=== PATIENT | male | born 1940 | race Caucasian/White ===

== ENCOUNTER 2025-03-09 10:22 | Inpatient (IN) | payer MEDICARE, OTHER ==
[~2025-03-09] VITALS: Ht 190.5 cm; Wt 86.2 kg
[2025-03-09] MEDS: PIPERACILLIN /TAZOBACTAM 3.375 G in IV D5W 50 ML IV ONE (10:50)
[2025-03-09 10:52] LABS: PLATELET COUNT (AUTO) 213 K/uL (150-450); RED BLOOD CELL COUNT(AUTO) 5.39 MIL/uL (4.5-6.0); RED CELL DISTRIBUTION WIDTH 18.9 % (11.5-15.0); WHITE BLOOD COUNT (AUTO) 21.5 K/uL (4.3-11.0)
[2025-03-09 10:55] LABS: CALCIUM, SERUM 9.9 mg/dL (8.5-10.1); CREATININE 1.6 mg/dL (0.6-1.3); SODIUM SERUM 147 mmol/L (136-145); UREA NITROGEN, BLOOD 41 mg/dL (7-18)
[2025-03-09] MEDS: IV NS 0.9% 1,000 ML BAG IV ONE (10:57)
[2025-03-09 10:59] LABS: INR 1.14 (0.91-1.10)
[2025-03-09] MEDS ORDERED: ACETAMINOPHEN ES 500 MG TABLET PO ONE (11:00)
[2025-03-09 11:03] LABS: LACTIC ACID 1.6 mmol/L (0.4-2.0)
[2025-03-09 11:04] LABS: ASPARTATE AMINOTRANSFERASE 12 U/L (15-37); TOTAL PROTEIN, SERUM 7.4 g/dL (6.4-8.2)
[2025-03-09] MEDS ORDERED: ACETAMINOPHEN ES 500 MG TABLET ONE (11:11)
[2025-03-09] MEDS ORDERED: ACETAMINOPHEN 650 MG/SUPP.RECT RC ONE (11:20)
[2025-03-09] MEDS: ACETAMINOPHEN 650 MG/SUPP.RECT RC ONE (11:20)
[2025-03-09] MEDS: VANCOMYCIN 1 GM in IV D5W 250 ML IV ONE (11:40)
[2025-03-09 13:30] VITALS: BP 152/76; TEMP 97.7
[2025-03-09] MEDS ORDERED: DOSING PER PHARMACY-CEFEPIME IVPB XX PRN (15:00)
[2025-03-09] MEDS ORDERED: ACETAMINOPHEN 325 MG TABLET PO PRN (15:00)
[2025-03-09] MEDS ORDERED: Z GUARD REMEDY 4 OZ OINT TP PRN (15:00)
[2025-03-09] MEDS ORDERED: DEXTROSE 50%-WATER 50 ML DISP.SYRIN IV PRN (15:00)
[2025-03-09] MEDS ORDERED: ALBUTEROL FS 2.5 MG/0.5 ML VIAL.NEB NEB PRN (15:00)
[2025-03-09] MEDS ORDERED: ONDANSETRON HCL/PF 4 MG/2 ML VIAL IVP PRN (15:00)
[2025-03-09] MEDS ORDERED: DOSING PER PHARMACY-VANCOMYCIN IV XX PRN (15:00)
[2025-03-09] MEDS ORDERED: IPRATROPIUM NEB FS 0.5 MG/2.5 ML AMPUL.NEB NEB PRN (15:00)
[2025-03-09] MEDS: IV D5/0.45 NACL 1,000 ML IV PRN (15:13)
[2025-03-09] MEDS: HYDROCORTISONE SOD SUCCINATE 100 MG/2 ML VIAL IV SCH (15:16)
[2025-03-09] MEDS: ENOXAPARIN SODIUM 40 MG/0.4 ML DISP.SYRIN SQ SCH (15:37)
[2025-03-09] MEDS: VANCOMYCIN 500 MG in IV D5W 100ml IV ONE (16:44)
[2025-03-09] MEDS: BLOOD SUGAR DIAGNOSTIC 1 EACH STRIP IN SCH (18:18)
[2025-03-09] MEDS: CEFEPIME 2 GM in IV D5W 100 ML IV SCH (18:18)
[2025-03-09] MEDS: INSULIN REGULAR, HUMAN 100 UNIT/ML 3 ML VIAL SQ PRN (18:19)
[2025-03-09 19:12] LABS: AMPHETAMINE, URINE NEGATIVE (NEGATIVE); BARBITURATE, URINE NEGATIVE (NEGATIVE); BENZODIAZEPINE, URINE NEGATIVE (NEGATIVE); CANNABINOID, URINE NEGATIVE (NEGATIVE); COCCAINE, URINE NEGATIVE (NEGATIVE); OPIATE, URINE NEGATIVE (NEGATIVE)
[2025-03-09 19:13] LABS: APPEARANCE,URINE CLOUDY (CLEAR); BLOOD, URINE 2+ Ery/uL (NEGATIVE); LEUKOCYTE ESTERASE ,URINE 2+ (NEGATIVE); NITRITE, URINE NEGATIVE (NEGATIVE); UGLUCOSE 1+ mg/dL (NEGATIVE)
[2025-03-09 19:25] LABS: ADD URINE CULTURE YES; SQUAMOUS EPITHELIAL CELL,UR Moderate /HPF (None Seen)
[2025-03-09 20:00] VITALS: BP 137/80; TEMP 97.7; O2SAT 97
[2025-03-10] VITALS: BP 144/83; TEMP 97.7; O2SAT 97
[2025-03-10 04:00] VITALS: BP 134/80; TEMP 97.7; O2SAT 97
[2025-03-10 07:52] LABS: PLATELET COUNT (AUTO) 182 K/uL (150-450); RED BLOOD CELL COUNT(AUTO) 4.76 MIL/uL (4.5-6.0); RED CELL DISTRIBUTION WIDTH 19.3 % (11.5-15.0); WHITE BLOOD COUNT (AUTO) 14.7 K/uL (4.3-11.0)
[2025-03-10 08:00] VITALS: BP 126/101; TEMP 98.2; O2SAT 97
[2025-03-10 08:45] LABS: CALCIUM, SERUM 9.5 mg/dL (8.5-10.1); CREATININE 1.5 mg/dL (0.6-1.3); NT-PRO BNP 921.0 pg/mL (0-125); PHOSPHORUS 3.6 mg/dL (2.5-4.9); SODIUM SERUM 147.0 mmol/L (136-145); UREA NITROGEN, BLOOD 44.0 mg/dL (7-18)
[2025-03-10] MEDS: PANTOPRAZOLE 40 MG VIAL IV SCH (09:20)
[2025-03-10] MEDS: FUROSEMIDE 20 MG/2 ML VIAL IV SCH (09:20)
[2025-03-10 09:51] LABS: LDL 48.0 mg/dL (0-99)
[2025-03-10] MEDS: DIGOXIN INJ 0.5 MG/2 ML AMPUL IV SCH (11:20)
[2025-03-10 12:00] VITALS: BP 150/86; TEMP 97.6; O2SAT 96
[2025-03-10] MEDS: VANCOMYCIN 1 GM in IV D5W 250ml IV SCH (15:25)
[2025-03-10 16:00] VITALS: BP 149/89; TEMP 97.9; O2SAT 96
[2025-03-10 16:32] LABS: HIV-1/2 ANTIBODY NON REACTIVE (NONREACTIVE)
[2025-03-10 20:00] VITALS: BP 132/87; TEMP 98.3; O2SAT 95
[2025-03-11] VITALS: BP 155/90; TEMP 97.5; O2SAT 95
[2025-03-11 04:00] VITALS: BP 156/86; TEMP 97.9; O2SAT 94
[2025-03-11 08:00] VITALS: BP 140/96; TEMP 98.6; O2SAT 94
[2025-03-11] MEDS: FUROSEMIDE 40 MG/4 ML VIAL IV SCH (09:43)
[2025-03-11] MEDS ORDERED: BARIUM SULFATE 98% 135 ML SUSP.RECON PO ONE (10:30)
[2025-03-11 12:00] VITALS: BP 137/100; TEMP 98.6; O2SAT 94
[2025-03-11] MEDS: IV D5/ 0.9% NACL 1,000 ML IV PRN (12:51)
[2025-03-11 15:44] LABS: PLATELET COUNT (AUTO) 170 K/uL (150-450); RED BLOOD CELL COUNT(AUTO) 4.68 MIL/uL (4.5-6.0); RED CELL DISTRIBUTION WIDTH 19.6 % (11.5-15.0); WHITE BLOOD COUNT (AUTO) 11.9 K/uL (4.3-11.0)
[2025-03-11 16:00] VITALS: BP 140/97; TEMP 98.1; O2SAT 94
[2025-03-11 16:00] LABS: CREATINE KINASE, TOTAL 19.0 U/L (39-308)
[2025-03-11 17:09] LABS: ASPARTATE AMINOTRANSFERASE 9.0 U/L (15-37); CALCIUM, SERUM 9.9 mg/dL (8.5-10.1); CREATININE 1.7 mg/dL (0.6-1.3); PHOSPHORUS 3.1 mg/dL (2.5-4.9); SODIUM SERUM 148.0 mmol/L (136-145); TOTAL PROTEIN, SERUM 6.9 g/dL (6.4-8.2); UREA NITROGEN, BLOOD 56.0 mg/dL (7-18)
[2025-03-11 20:00] VITALS: BP 130/90; TEMP 97.9; O2SAT 94
[2025-03-12] VITALS: BP 154/92; TEMP 97.9; O2SAT 94
[2025-03-12 04:00] VITALS: BP 141/92; TEMP 98.1; O2SAT 94
[2025-03-12 06:21] LABS: PLATELET COUNT (AUTO) 167 K/uL (150-450); RED BLOOD CELL COUNT(AUTO) 5.32 MIL/uL (4.5-6.0); RED CELL DISTRIBUTION WIDTH 19.3 % (11.5-15.0); WHITE BLOOD COUNT (AUTO) 10.5 K/uL (4.3-11.0)
[2025-03-12 06:49] LABS: ASPARTATE AMINOTRANSFERASE 6 U/L (15-37); CALCIUM, SERUM 9.6 mg/dL (8.5-10.1); CREATININE 1.7 mg/dL (0.6-1.3); PHOSPHORUS 3.0 mg/dL (2.5-4.9); SODIUM SERUM 150 mmol/L (136-145); TOTAL PROTEIN, SERUM 6.8 g/dL (6.4-8.2); UREA NITROGEN, BLOOD 61 mg/dL (7-18)
[2025-03-12 08:00] VITALS: BP 137/93; TEMP 97.5; O2SAT 94
[2025-03-12] MEDS: OLANZAPINE 10 MG VIAL IM ONE (09:30)
[2025-03-12] MEDS: POTASSIUM CL. PREMIX PERIPHER. 50 ML IV SCH (11:19)
[2025-03-12] MEDS ORDERED: DAPA10TA PO (11:56)
[2025-03-12] MEDS ORDERED: ACET-2030 PO (11:56)
[2025-03-12] MEDS ORDERED: ALLO300T2 PO (11:56)
[2025-03-12] MEDS ORDERED: LEVO50TA8 PO (11:56)
[2025-03-12] MEDS ORDERED: APIX5TAB PO (11:56)
[2025-03-12] MEDS ORDERED: METO25TA4 PO (11:56)
[2025-03-12] MEDS ORDERED: MAGN200T5 PO (11:56)
[2025-03-12] MEDS ORDERED: GLUC1KIT IM (11:56)
[2025-03-12] MEDS ORDERED: FOLI0.4T6 PO (11:56)
[2025-03-12] MEDS ORDERED: ACET-868 PO (11:56)
[2025-03-12] MEDS ORDERED: MULT-213 PO (11:56)
[2025-03-12] MEDS ORDERED: LACT10SO58 PO (11:56)
[2025-03-12] MEDS ORDERED: MELA3TAB41 PO (11:56)
[2025-03-12] MEDS ORDERED: BISA10SU11 RC (11:56)
[2025-03-12] MEDS ORDERED: TAMS-12 PO (11:56)
[2025-03-12] MEDS ORDERED: SODI650T PO (11:56)
[2025-03-12] MEDS ORDERED: NA P133E RC (11:56)
[2025-03-12] MEDS ORDERED: CLOP75TA15 PO (11:56)
[2025-03-12] MEDS ORDERED: FINA5TAB4 PO (11:56)
[2025-03-12] MEDS ORDERED: MAGN400O6 PO (11:56)
[2025-03-12] MEDS ORDERED: LOPE2TAB25 PO (11:56)
[2025-03-12] MEDS ORDERED: OMEP40CA21 PO (11:56)
[2025-03-12] MEDS ORDERED: CRAN400C PO (11:56)
[2025-03-12] MEDS ORDERED: ASCO-352 PO (11:56)
[2025-03-12] MEDS ORDERED: ASPI-1169 PO (11:56)
[2025-03-12] MEDS ORDERED: DOCU100T2 PO (11:56)
[2025-03-12 12:00] VITALS: BP 143/86; TEMP 98; O2SAT 97
[2025-03-12] MEDS: DIGOXIN INJ 0.5 MG/2 ML AMPUL IV SCH (13:51)
[2025-03-12 16:00] VITALS: BP 127/82; TEMP 97.5; O2SAT 95
[2025-03-12] MEDS: IV D5/0.45 NACL 1,000 ML IV PRN (18:25)
[2025-03-12 20:00] VITALS: BP 152/89; TEMP 97.7; O2SAT 93
[2025-03-13] VITALS: BP 159/91; TEMP 97.7; O2SAT 98
[2025-03-13 00:11] LABS: PTH, INTACT 34 pg/mL (15-65)
[2025-03-13 04:00] VITALS: BP 134/76; TEMP 98.1; O2SAT 95
[2025-03-13 08:00] VITALS: BP 131/72; TEMP 98.1; O2SAT 96
[2025-03-13 10:43] LABS: PLATELET COUNT (AUTO) 162 K/uL (150-450); RED BLOOD CELL COUNT(AUTO) 4.95 MIL/uL (4.5-6.0); RED CELL DISTRIBUTION WIDTH 19.1 % (11.5-15.0); WHITE BLOOD COUNT (AUTO) 9.0 K/uL (4.3-11.0)
[2025-03-13 10:53] LABS: CALCIUM, SERUM 9.6 mg/dL (8.5-10.1); CREATININE 1.4 mg/dL (0.6-1.3); SODIUM SERUM 152.0 mmol/L (136-145); UREA NITROGEN, BLOOD 63.0 mg/dL (7-18)
[2025-03-13 12:00] VITALS: BP 134/74; TEMP 97.9; O2SAT 97
[2025-03-13] MEDS: HYDROCORTISONE SOD SUCCINATE 100 MG/2 ML VIAL IV SCH (12:57)
[2025-03-13] MEDS: IV D5W 1,000 ML IV SCH (14:47)
[2025-03-13 16:00] VITALS: BP 130/77; TEMP 97.2; O2SAT 95
[2025-03-13 20:00] VITALS: BP 140/75; TEMP 97.5; O2SAT 99
[2025-03-14] VITALS: BP 135/80; TEMP 97.9; O2SAT 99
[2025-03-14 04:00] VITALS: BP 148/75; TEMP 98; O2SAT 99
[2025-03-14 07:33] LABS: PLATELET COUNT (AUTO) 141 K/uL (150-450); RED BLOOD CELL COUNT(AUTO) 4.71 MIL/uL (4.5-6.0); RED CELL DISTRIBUTION WIDTH 18.7 % (11.5-15.0); WHITE BLOOD COUNT (AUTO) 9.1 K/uL (4.3-11.0)
[2025-03-14 07:50] LABS: CALCIUM, SERUM 9.6 mg/dL (8.5-10.1); CREATININE 1.3 mg/dL (0.6-1.3); SODIUM SERUM 152.0 mmol/L (136-145); UREA NITROGEN, BLOOD 53.0 mg/dL (7-18)
[2025-03-14 08:00] VITALS: BP 158/94; TEMP 97.9; O2SAT 95
[2025-03-14] MEDS: HYDROCORTISONE SOD SUCCINATE 100 MG/2 ML VIAL IV SCH (08:21)
[2025-03-14] MEDS: QUETIAPINE FUMARATE 25 MG TABLET PO SCH (09:30)
[2025-03-14] MEDS: IV D5W 1,000 ML IV ONE (10:36)
[2025-03-14] MEDS: POTASSIUM CL. PREMIX PERIPHER. 50 ML IV SCH (10:42)
[2025-03-14 12:00] VITALS: BP 140/81; TEMP 97.8; O2SAT 94
[2025-03-14 16:00] VITALS: BP 143/92; TEMP 98.1; O2SAT 97
[2025-03-14 20:00] VITALS: BP 134/95; TEMP 97.9; O2SAT 98
[2025-03-15] VITALS: BP 150/78; TEMP 97.5; O2SAT 98
[2025-03-15 04:00] VITALS: BP 155/79; TEMP 97.9; O2SAT 96
[2025-03-15 08:00] VITALS: BP 146/88; TEMP 98.9; O2SAT 96
[2025-03-15 11:33] LABS: ASPARTATE AMINOTRANSFERASE 30 U/L (15-37); CALCIUM, SERUM 6.8 mg/dL (8.5-10.1); CREATININE 0.7 mg/dL (0.6-1.3); PHOSPHORUS 1.5 mg/dL (2.5-4.9); SODIUM SERUM 143 mmol/L (136-145); TOTAL PROTEIN, SERUM 4.3 g/dL (6.4-8.2); UREA NITROGEN, BLOOD 33 mg/dL (7-18)
[2025-03-15 12:00] VITALS: BP 124/62; TEMP 97.9; O2SAT 97
[2025-03-15 16:00] VITALS: BP 130/60; TEMP 97.8; O2SAT 97
[2025-03-15] MEDS: Sodium Phosphate 15 MMOL in IV NS 0.9% 245 ML IV SCH (16:23)
[2025-03-15] MEDS: IV D5W 1,000 ML IV PRN (16:48)
[2025-03-15 20:00] VITALS: BP 129/84; TEMP 97.9; O2SAT 98
[2025-03-15 21:12] LABS: PLATELET COUNT (AUTO) 132 K/uL (150-450); RED BLOOD CELL COUNT(AUTO) 5.13 MIL/uL (4.5-6.0); RED CELL DISTRIBUTION WIDTH 18.3 % (11.5-15.0); WHITE BLOOD COUNT (AUTO) 16.4 K/uL (4.3-11.0)
[2025-03-15 21:48] LABS: LYMPHOCYTES % (MANUAL) 9 % (16-48); MONOCYTES % (MANUAL) 8 % (0-11.0); NEUTROPHILS % (MANUAL) 83 (42-76); PLATELET ESTIMATE DECREASED
[2025-03-16] VITALS: BP 129/84; TEMP 97.9; O2SAT 98
[2025-03-16 04:00] VITALS: BP 130/85; TEMP 98; O2SAT 100
[2025-03-16 07:30] LABS: PLATELET COUNT (AUTO) 142 K/uL (150-450); RED BLOOD CELL COUNT(AUTO) 4.86 MIL/uL (4.5-6.0); RED CELL DISTRIBUTION WIDTH 18.2 % (11.5-15.0); WHITE BLOOD COUNT (AUTO) 15.5 K/uL (4.3-11.0)
[2025-03-16 07:52] LABS: CALCIUM, SERUM 8.6 mg/dL (8.5-10.1); CREATININE 1.1 mg/dL (0.6-1.3); SODIUM SERUM 143.0 mmol/L (136-145); UREA NITROGEN, BLOOD 34.0 mg/dL (7-18)
[2025-03-16 08:00] VITALS: BP 140/64; TEMP 97.9; O2SAT 100
[2025-03-16] MEDS: POTASSIUM CL. PREMIX PERIPHER. 50 ML IV SCH (09:38)
[2025-03-16 10:42] LABS: EOSINOPHILS % (MANUAL) 3 % (0-4); LYMPHOCYTES % (MANUAL) 3 % (16-48); MONOCYTES % (MANUAL) 2 % (0-11.0); MYELOCYTES % 1 % (0-0); NEUTROPHILS % (MANUAL) 90 (42-76); PLATELET ESTIMATE DECREASED; REACTIVE LYMPHOCYTES 1 % (0-0)
[2025-03-16 16:00] VITALS: BP 117/51; TEMP 97.9; O2SAT 93
[2025-03-17] VITALS: BP 135/74; TEMP 97.9; O2SAT 97
[2025-03-17 08:00] VITALS: BP 126/74; TEMP 97.9; O2SAT 98
[2025-03-17] MEDS: HYDROCORTISONE SOD SUCCINATE 100 MG/2 ML VIAL IV SCH (09:34)
[2025-03-17] MEDS: ENOXAPARIN SODIUM 80 MG/0.8 ML DISP.SYRIN SQ SCH (14:52)
[2025-03-17 16:00] VITALS: BP 115/61; TEMP 97.2; O2SAT 98
[2025-03-17 16:13] LABS: PLATELET COUNT (AUTO) 120 K/uL (150-450); RED BLOOD CELL COUNT(AUTO) 4.86 MIL/uL (4.5-6.0); RED CELL DISTRIBUTION WIDTH 19.4 % (11.5-15.0)
[2025-03-17 16:34] LABS: CALCIUM, SERUM 8.4 mg/dL (8.5-10.1); CREATININE 1.0 mg/dL (0.6-1.3); PHOSPHORUS 2.4 mg/dL (2.5-4.9); SODIUM SERUM 136.0 mmol/L (136-145); UREA NITROGEN, BLOOD 29.0 mg/dL (7-18)
[2025-03-18 01:30] VITALS: BP 115/61; TEMP 97.2; O2SAT 98
[2025-03-18 07:22] LABS: PLATELET COUNT (AUTO) 152 K/uL (150-450); RED BLOOD CELL COUNT(AUTO) 4.66 MIL/uL (4.5-6.0); RED CELL DISTRIBUTION WIDTH 17.9 % (11.5-15.0); WHITE BLOOD COUNT (AUTO) 24.9 K/uL (4.3-11.0)
[2025-03-18 07:37] LABS: CALCIUM, SERUM 8.1 mg/dL (8.5-10.1); CREATININE 1.2 mg/dL (0.6-1.3); PHOSPHORUS 2.0 mg/dL (2.5-4.9); SODIUM SERUM 137.0 mmol/L (136-145); UREA NITROGEN, BLOOD 30.0 mg/dL (7-18)
[2025-03-18 08:00] VITALS: BP 134/61; TEMP 97.6; O2SAT 98
[2025-03-18] MEDS: LEVOTHYROXINE INJ 100 MCG VIAL IV SCH (09:45)
[2025-03-18] MEDS: POTASSIUM CL. PREMIX PERIPHER. 50 ML IV SCH (09:45)
[2025-03-18] MEDS: ASPIRIN 300 MG/SUPP.RECT RC SCH (09:46)
[2025-03-18] MEDS ORDERED: DEXTROSE 50%-WATER 50 ML DISP.SYRIN IV PRN (13:30)
[2025-03-18] MEDS: BLOOD SUGAR DIAGNOSTIC 1 EACH STRIP IN SCH (13:38)
[2025-03-18] MEDS: INSULIN REGULAR, HUMAN 100 UNIT/ML 3 ML VIAL SQ PRN (13:40)
[2025-03-18 16:00] VITALS: BP 138/66; TEMP 97; O2SAT 98
[2025-03-18] MEDS: Sodium Phosphate 15 MMOL in IV NS 0.9% 245 ML IV SCH (17:33)
[2025-03-18] MEDS ORDERED: VANCOMYCIN HCL 125 MG/2.5 ML ORAL.SUSP PO SCH (18:00)
[2025-03-18 20:00] VITALS: BP 109/69; TEMP 97.2; O2SAT 95
[2025-03-19 04:00] VITALS: BP 114/78; TEMP 98.2; O2SAT 93
[2025-03-19 08:00] VITALS: BP 128/60; TEMP 97.8; O2SAT 93
[2025-03-19 11:35] LABS: PLATELET COUNT (AUTO) 143 K/uL (150-450); RED BLOOD CELL COUNT(AUTO) 4.56 MIL/uL (4.5-6.0); RED CELL DISTRIBUTION WIDTH 18.3 % (11.5-15.0); WHITE BLOOD COUNT (AUTO) 19.0 K/uL (4.3-11.0)
[2025-03-19 11:51] LABS: CALCIUM, SERUM 8.0 mg/dL (8.5-10.1); CREATININE 1.6 mg/dL (0.6-1.3); PHOSPHORUS 3.0 mg/dL (2.5-4.9); SODIUM SERUM 133.0 mmol/L (136-145); UREA NITROGEN, BLOOD 37.0 mg/dL (7-18)
[2025-03-19 12:27] LABS: BAND % (MANUAL) 2 % (0.0-5.0); LYMPHOCYTES % (MANUAL) 2 % (16-48); MONOCYTES % (MANUAL) 3 % (0-11.0); NEUTROPHILS % (MANUAL) 93 (42-76); PLATELET ESTIMATE DECREASED
[2025-03-19 16:00] VITALS: BP 104/61; TEMP 98.6; O2SAT 93
[2025-03-19] MEDS: METRONIDAZOLE 500MG/ NS 100ML 500 MG in PREMIX 1 EA IV SCH (17:00)
[2025-03-19] MEDS: VANCOMYCIN FOR RECTAL ENEMA 500 MG RC SCH (18:15)
[2025-03-19 20:00] VITALS: BP 100/58; TEMP 97.6; O2SAT 95
[2025-03-20 04:00] VITALS: BP 95/60; TEMP 98.6; O2SAT 96
[2025-03-20 07:46] LABS: PLATELET COUNT (AUTO) 151 K/uL (150-450); RED BLOOD CELL COUNT(AUTO) 4.64 MIL/uL (4.5-6.0); RED CELL DISTRIBUTION WIDTH 18.3 % (11.5-15.0); WHITE BLOOD COUNT (AUTO) 12.9 K/uL (4.3-11.0)
[2025-03-20] MEDS: IV D5/ 0.9% NACL 1,000 ML IV PRN (07:48)
[2025-03-20 07:56] LABS: CALCIUM, SERUM 8.1 mg/dL (8.5-10.1); CREATININE 2.1 mg/dL (0.6-1.3); PHOSPHORUS 3.7 mg/dL (2.5-4.9); SODIUM SERUM 135.0 mmol/L (136-145); UREA NITROGEN, BLOOD 42.0 mg/dL (7-18)
[2025-03-20 08:00] VITALS: BP 112/62; TEMP 98.1; O2SAT 95
[2025-03-20] MEDS: Magnesium 1GM/D5W 100ML PREMIX 100 ML IV SCH (09:43)
[2025-03-20] MEDS: POTASSIUM CL. PREMIX PERIPHER. 50 ML IV SCH (09:50)
[2025-03-20 11:07] LABS: CREATININE, URINE 119.3 MG/DL (30.0-125.0); URINE SODIUM, RANDOM 10.0 mmol/l (40-220); URINE TOTAL PROTEIN 130.2 mg/dL (0-11.9)
[2025-03-20 11:09] LABS: APPEARANCE,URINE SLIGHTLY CLOUDY (CLEAR); BLOOD, URINE 2+ Ery/uL (NEGATIVE); LEUKOCYTE ESTERASE ,URINE 2+ (NEGATIVE); NITRITE, URINE NEGATIVE (NEGATIVE); UGLUCOSE NEGATIVE (NEGATIVE)
[2025-03-20 11:31] LABS: ADD URINE CULTURE YES; SQUAMOUS EPITHELIAL CELL,UR 0-2 /HPF (None Seen); YEAST,URINE Moderate /HPF (None Seen)
[2025-03-20] MEDS: ACETAMINOPHEN 650 MG/SUPP.RECT RC PRN (14:56)
[2025-03-20 15:32] LABS: EOSINOPHIL,URINE None Seen
[2025-03-20 16:00] VITALS: BP 106/58; TEMP 97.9; O2SAT 95
[2025-03-20 16:26] LABS: LYMPHOCYTES % (MANUAL) 7 % (16-48); MONOCYTES % (MANUAL) 8 % (0-11.0); NEUTROPHILS % (MANUAL) 84 (42-76)
[2025-03-20 16:27] LABS: PLATELET ESTIMATE ADEQUATE
[2025-03-20 20:00] VITALS: BP 94/64; TEMP 97.9; O2SAT 95
[2025-03-21 04:00] VITALS: BP 114/52; TEMP 97.9; O2SAT 95
[2025-03-21 07:51] LABS: PLATELET COUNT (AUTO) 165 K/uL (150-450); RED BLOOD CELL COUNT(AUTO) 4.30 MIL/uL (4.5-6.0); RED CELL DISTRIBUTION WIDTH 18.0 % (11.5-15.0); WHITE BLOOD COUNT (AUTO) 12.5 K/uL (4.3-11.0)
[2025-03-21 08:00] VITALS: BP 135/54; TEMP 97.3; O2SAT 95
[2025-03-21 08:17] LABS: CALCIUM, SERUM 7.6 mg/dL (8.5-10.1); CREATININE 2.2 mg/dL (0.6-1.3); PHOSPHORUS 3.6 mg/dL (2.5-4.9); SODIUM SERUM 138.0 mmol/L (136-145); UREA NITROGEN, BLOOD 47.0 mg/dL (7-18)
[2025-03-21] MEDS: POTASSIUM CL. PREMIX PERIPHER. 50 ML IV SCH (09:48)
[2025-03-21] MEDS ORDERED: PPN ADDITIVES 1 EA in AMINO ACIDS 4.25 %/DEXTROSE 5% 1,000 ML IV PRN (15:00)
[2025-03-21 16:00] VITALS: BP_SYST 102; BP_SYST 135; BP_DIAS 54; BP_DIAS 58; TEMP 97.3; O2SAT 94; O2SAT 95
[2025-03-21] MEDS: PPN IV SCH (16:50)
[2025-03-21 20:00] VITALS: BP 110/61; TEMP 98.2; O2SAT 96
[2025-03-21] MEDS: ENOXAPARIN SODIUM 80 MG/0.8 ML DISP.SYRIN SQ SCH (21:37)
[2025-03-22 04:00] VITALS: BP 104/50; TEMP 98.7; O2SAT 94
[2025-03-22 08:00] VITALS: BP 92/65; TEMP 97.8; O2SAT 97
[2025-03-22 10:51] LABS: PLATELET COUNT (AUTO) 157 K/uL (150-450); RED BLOOD CELL COUNT(AUTO) 4.24 MIL/uL (4.5-6.0); RED CELL DISTRIBUTION WIDTH 18.5 % (11.5-15.0); WHITE BLOOD COUNT (AUTO) 10.1 K/uL (4.3-11.0)
[2025-03-22 11:31] LABS: CALCIUM, SERUM 7.9 mg/dL (8.5-10.1); CREATININE 2.0 mg/dL (0.6-1.3); PHOSPHORUS 2.8 mg/dL (2.5-4.9); SODIUM SERUM 139.0 mmol/L (136-145); UREA NITROGEN, BLOOD 43.0 mg/dL (7-18)
[2025-03-22] MEDS: POTASSIUM CL. PREMIX PERIPHER. 50 ML IV SCH (12:26)
[2025-03-22] MEDS ORDERED: TPN/PPN PER PHARMACY IV PRN (12:30)
[2025-03-22 16:00] VITALS: BP 99/55; TEMP 98.6; O2SAT 96
[2025-03-22] MEDS: PPN #2 IV SCH (16:45)
[2025-03-22] MEDS: FAT EMULSION 20% 500 ML in PREMIX 1 EA IV SCH (16:45)
[2025-03-22 20:00] VITALS: BP 140/90; TEMP 97.5; O2SAT 96
[2025-03-23 04:00] VITALS: BP 116/61; TEMP 97.9; O2SAT 95
[2025-03-23 08:00] VITALS: BP 116/61; TEMP 98.1; O2SAT 91
[2025-03-23 08:13] LABS: PLATELET COUNT (AUTO) 154 K/uL (150-450); RED BLOOD CELL COUNT(AUTO) 4.09 MIL/uL (4.5-6.0); RED CELL DISTRIBUTION WIDTH 19.3 % (11.5-15.0); WHITE BLOOD COUNT (AUTO) 9.0 K/uL (4.3-11.0)
[2025-03-23 10:48] LABS: CALCIUM, SERUM 7.5 mg/dL (8.5-10.1); CREATININE 1.6 mg/dL (0.6-1.3); PHOSPHORUS 2.8 mg/dL (2.5-4.9); SODIUM SERUM 143.0 mmol/L (136-145); UREA NITROGEN, BLOOD 41.0 mg/dL (7-18)
[2025-03-23] MEDS: Magnesium 1GM/D5W 100ML PREMIX 100 ML IV SCH (12:07)
[2025-03-23 16:00] VITALS: BP 98/78; TEMP 97.1; O2SAT 91
[2025-03-23] MEDS: METRONIDAZOLE 500MG/ NS 100ML 500 MG in PREMIX 1 EA IV SCH (16:17)
[2025-03-23] MEDS: PPN #3 IV SCH (18:42)
[2025-03-23] MEDS: POTASSIUM CL. PREMIX PERIPHER. 50 ML IV SCH (19:54)
[2025-03-23 20:00] VITALS: BP 142/74; TEMP 97.5; O2SAT 97
[2025-03-24 04:00] VITALS: BP 147/73; TEMP 97.4; O2SAT 92
[2025-03-24 07:03] LABS: PLATELET COUNT (AUTO) 156 K/uL (150-450); RED BLOOD CELL COUNT(AUTO) 4.29 MIL/uL (4.5-6.0); RED CELL DISTRIBUTION WIDTH 18.5 % (11.5-15.0); WHITE BLOOD COUNT (AUTO) 10.6 K/uL (4.3-11.0)
[2025-03-24 07:36] LABS: CALCIUM, SERUM 7.9 mg/dL (8.5-10.1); CREATININE 1.4 mg/dL (0.6-1.3); PHOSPHORUS 2.4 mg/dL (2.5-4.9); SODIUM SERUM 142.0 mmol/L (136-145); UREA NITROGEN, BLOOD 38.0 mg/dL (7-18)
[2025-03-24 08:00] VITALS: BP 137/63; TEMP 97.5; O2SAT 92
[2025-03-24] MEDS: Sodium Phosphate 15 MMOL in IV NS 0.9% 245 ML IV SCH (09:00)
[2025-03-24] MEDS: PPN #4 IV SCH (15:26)
[2025-03-24 16:00] VITALS: BP 135/83; TEMP 97.8; O2SAT 95
[2025-03-24 20:00] VITALS: BP 156/66; TEMP 97.8; O2SAT 98
[2025-03-24] MEDS: Magnesium 1GM/D5W 100ML PREMIX 100 ML IV SCH (21:14)
[2025-03-24] MEDS: POTASSIUM CL. PREMIX PERIPHER. 50 ML IV SCH (21:16)
[2025-03-25 04:00] VITALS: BP 116/66; TEMP 97.8; O2SAT 98
[2025-03-25 08:00] VITALS: BP 116/66; TEMP 97.3; O2SAT 93
[2025-03-25 08:54] LABS: ABG BASE EXCESS -8.4 mmol/L (-2.0-3.0); ABG OXYGEN SATURATION 94.7 % (94.0-98.0); ABG PCO2 44.6 mmHg (35.0-48.0); ABG PH 7.241 (7.350-7.450); ABG PO2 79.1 mmHg (83.0-108.0); ABG TOTAL HEMOGLOBIN 12.7 G/dL (13.5-17.5); FRACTIONATED INSPIRED OXYGEN 21.0 %; SITE, ABG LEFT RADIAL
[2025-03-25 09:25] LABS: CALCIUM, SERUM 7.9 mg/dL (8.5-10.1); CREATININE 1.3 mg/dL (0.6-1.3); PHOSPHORUS 2.1 mg/dL (2.5-4.9); SODIUM SERUM 142.0 mmol/L (136-145); UREA NITROGEN, BLOOD 43.0 mg/dL (7-18)
[2025-03-25] MEDS: PPN #5 IV SCH (10:26)
[2025-03-25] MEDS: Sodium Bicarbonate 150 MEQ in IV D5W 1,000 ML IV SCH (12:03)
[2025-03-25] MEDS: SODIUM BICARBONATE SYR 50 MEQ/50 ML DISP.SYRIN IV STA (12:06)
[2025-03-25] MEDS: POTASSIUM PHOSPHATE MM 7.5 MMOL in IV NS 0.9% 100 ML IV SCH (12:58)
[2025-03-25 16:00] VITALS: BP 123/34; TEMP 98.4; O2SAT 95
[2025-03-26] MEDS ORDERED: PPN #6 IV SCH ×2 (00:34)
[2025-03-26 17:10] LABS: *SPE A/G RATIO 0.8 (0.7-1.7); *SPE ALBUMIN 2.2 g/dL (2.9-4.4); *SPE ALPHA-1-GLOBULIN 0.4 g/dL (0.0-0.4); *SPE ALPHA-2-GLOBULIN 0.7 g/dL (0.4-1.0); *SPE BETA GLOBULIN 0.8 g/dL (0.7-1.3); *SPE GLOBULIN, TOTAL 2.9 g/dL (2.2-3.9); *SPE M-SPIKE Not Observed g/dL (Not Observed); *SPE PROTEIN TOTAL 5.1 g/dL (6.0-8.5); *SPEGAMMA GLOBULIN 1.0 g/dL (0.4-1.8)
== END 2025-03-25 19:06 | disposition short-term general hospital (02) | DRG 871 ==
LOC: ER 10:25 → TELE1 13:06 → MEDSG1 03-15 09:29
PROC: 0DJ08ZZ Inspection of Upper Intestinal Tract, Via Natural or Artificial Opening Endoscopic (ICD-10-PCS; principal; 2025-03-13 18:30)
DX: A41.9 Sepsis, unspecified organism (principal); E43 Unspecified severe protein-calorie malnutrition; J15.69 Pneumonia due to other Gram-negative bacteria; N17.0 Acute kidney failure with tubular necrosis; J69.0 Pneumonitis due to inhalation of food and vomit; G93.41 Metabolic encephalopathy; N39.0 Urinary tract infection, site not specified; J44.0 Chronic obstructive pulmonary disease with (acute) lower respiratory infection; E87.0 Hyperosmolality and hypernatremia; F02.C2 Dementia in other diseases classified elsewhere, severe, with psychotic disturbance; F02.C3 Dementia in other diseases classified elsewhere, severe, with mood disturbance; I13.0 Hypertensive heart and chronic kidney disease with heart failure and stage 1 through stage 4 chronic kidney disease, or unspecified chronic kidney disease; J98.11 Atelectasis; Z16.19 Resistance to other specified beta lactam antibiotics; A04.72 Enterocolitis due to Clostridium difficile, not specified as recurrent; B37.49 Other urogenital candidiasis; D64.9 Anemia, unspecified; D69.6 Thrombocytopenia, unspecified; E86.0 Dehydration; E88.09 Other disorders of plasma-protein metabolism, not elsewhere classified; G30.9 Alzheimer's disease, unspecified; I48.91 Unspecified atrial fibrillation; K20.90 Esophagitis, unspecified without bleeding; K29.70 Gastritis, unspecified, without bleeding; K44.9 Diaphragmatic hernia without obstruction or gangrene; N18.9 Chronic kidney disease, unspecified; R62.7 Adult failure to thrive; R13.10 Dysphagia, unspecified; Z20.822 Contact with and (suspected) exposure to COVID-19; E87.6 Hypokalemia; E11.22 Type 2 diabetes mellitus with diabetic chronic kidney disease; K22.89 Other specified disease of esophagus; M62.58 Muscle wasting and atrophy, not elsewhere classified, other site; N40.1 Benign prostatic hyperplasia with lower urinary tract symptoms; B96.89 Other specified bacterial agents as the cause of diseases classified elsewhere; I50.9 Heart failure, unspecified; E83.89 Other disorders of mineral metabolism; L98.8 Other specified disorders of the skin and subcutaneous tissue; L89.159 Pressure ulcer of sacral region, unspecified stage; Z78.1 Physical restraint status; F31.9 Bipolar disorder, unspecified; Z68.23 Body mass index [BMI] 23.0-23.9, adult
CPT/HCPCS: 36415; 36600; 43235; 70450-TC; 71045-TC; 71250-TC; 74230-TC; 76770-TC; 80048-TC; 80053-TC; 80061-TC; 80076-TC; 80202-TC; 81001; 82140-TC; 82550-TC; 82570-TC; 82803-TC; 82962-TC; 83605-TC; 83735-TC; 83880; 83970; 84100-TC; 84155; 84165; 84300-TC; 84443-TC; 84478-TC; 84484-TC; 85025-TC; 85027-TC; 85730-TC; 86140-TC; 86803; 87040-TC; 87045-TC; 87081-TC; 87086-TC; 87186-TC; 87806; 92526; 92611; A4216; A4223; A6213; A9563; G0378; J0690; J0692; J1160; J1650; J1720; J1815; J1938; J2470; J2543; J2704; J3373; J3475; J3480; J3490; J7030; J7040; J7042; J7050; J7060; J7070